=== PATIENT | male | born 1995 | race Caucasian/White ===

== ENCOUNTER 2018-07-24 08:50 | Emergency (ER) | payer OTHER ==
[~2018-07-24] VITALS: Ht 182.9 cm; Wt 77.1 kg
[2018-07-24 09:02] VITALS: BP 141/93
--- NOTE | 2018-07-24 09:04 | NUR ---
PATIENT PRESENTS TO ED ACCOMPANIED BY MOTHER C/O DIZZINESS AFTER TAKING COUGH MEDICATION THIS MORNING DENIES INJURY RECENT DX URI RX Z-PACK, ZYRTEC . DENIES N/V/D; SKIN IS PINK/WARM/DRY; AAOX4 WITH EVEN AND STEADY GAIT; LUNGS CLEAR BL; HR EVEN AND REGULAR; PT DENIES ANY FEVER, CP, SOB, OR COUGH AT THIS TIME; PATIENT STATES PAIN OF 0/10 AT THIS TIME; VSS; PATIENT POSITIONED FOR COMFORT; HOB ELEVATED; BEDRAILS UP X2; BED DOWN. ER MD MADE AWARE OF PT STATUS.
[2018-07-24] MEDS ORDERED: ONDANSETRON 4 MG ODT PO ONE (09:40)
[2018-07-24] MEDS ORDERED: MECLIZINE 25 MG TAB PO ONE (09:40)
[2018-07-24] MEDS ORDERED: ALBUTEROL SULFATE/IPRATROPIU 3 ML SOL IH ONE (09:40)
[2018-07-24] MEDS ORDERED: FAMOTIDINE 20 MG TAB PO ONE (09:40)
--- NOTE | 2018-07-24 09:56 | NUR ---
ADMITTING DX: DIZZINESS HX: DENIES ASTHMA C/O SLIGHT SOB AT THIS TIME AWAKE AND ALERT RESPONSIVE HFW POSITION EDUCATION PROVIDED TO PATIENT WITH ACKNOWLEDGEMENT ON HHN THERAPY AND RESPIRATORY DRUG HHN THERAPY GIVEN ORDERED ENCOURAGED PATIENT FOR INTERMITTENT DEEP BREATHING DURING THERAPY TOLERATED WELL WITHOUT INCIDENT
--- NOTE | 2018-07-24 09:57 | NUR ---
Breathing treatment administered at bedside by respiratory therapist.
--- NOTE | 2018-07-24 10:28 | NUR ---
Patient discharged with v/s stable. Written and verbal after care instructions given and explained. Patient alert, oriented and verbalized understanding of instructions. Ambulatory with to car. All questions addressed prior to discharge. ID band removed. Patient advised to follow up with PMD. Rx of ANTIVERT given. Patient educated on indication of medication including possible reaction and side effects. Opportunity to ask questions provided and answered.
[2018-07-24 10:29] VITALS: BP 119/62
== END 2018-07-24 10:28 | disposition home or self-care (01) ==
LOC: MED 08:50
DX: R42 Dizziness and giddiness (principal); T40.2X5A Adverse effect of other opioids, initial encounter; Y92.89 Other specified places as the place of occurrence of the external cause
CPT/HCPCS: 94640; 99284; J7620; J8597; S0119